=== PATIENT | male | born 1980 | race Caucasian/White ===

== ENCOUNTER 2017-03-24 11:52 | Inpatient (IN) | payer OTHER ==
[2017-03-24 12:31] VITALS: BMI 24.7
--- NOTE | 2017-03-24 17:05 | HP ---
Admission ROS [facility] - [facility] Chief Complaint: I need rehab to stop using so I can continue on OTP Allergies/Adverse Reactions: Allergies Allergy/AdvReac Type Severity Reaction Status Date / Time No Known Allergies Allergy Verified 03/24/17 16:14 History of Present Illness: 36 y/o man with a long hx. of drug & alcohol dependence is admitted to rehab. Pt completed detox at [facility], was sent to [place] for rehab but they did not want to keep him because of heart surgery. Exam Limitations: No Limitations - Ebola screening Have you traveled outside of the country in the last 21 days: No Have you had contact with anyone from an Ebola affected area: No Have you been sick,other than usual withdrawal symptoms: No - Review of Systems Constitutional: Diaphoresis EENT: reports: No Symptoms Reported Respiratory: reports: No Symptoms reported Cardiac: reports: No Symptoms Reported GI: reports: No Symptoms Reported : reports: No Symptoms Reported Musculoskeletal: reports: No Symptoms Reported Integumentary: reports: No Symptoms Reported Neuro: reports: No Symptoms reported Endocrine: reports: No Symptoms Reported Hematology: reports: No Symptoms Reported Psychiatric: reports: No Sypmtoms Reported Other Systems: Reviewed and Negative Patient History - Patient Medical History Hx Anemia: No Hx Asthma: No Hx Chronic Obstructive Pulmonary Disease (COPD): No Hx Cancer: No Hx Cardiac Disorders: Yes (tricuspid valve replacement) Hx Congestive Heart Failure: No Hx Hypertension: Yes Hx Hypercholesterolemia: No Hx Pacemaker: No HX Cerebrovascular Accident: No Hx Seizures: No Hx Dementia: No Hx Diabetes: No Hx Liver Disease: Yes Hx Genitourinary Disorders: No Hx Sexually Transmitted Disorders: No Hx Renal Disease (ESRD): No Hx Thyroid Disease: No Hx Human Immunodeficiency Virus (HIV): No Hx Hepatitis C: Yes Hx Depression: Yes (PTSD) Hx Suicide Attempt: Yes (Tried to hang himself) Hx Bipolar Disorder: Yes Hx Schizophrenia: No - Patient Surgical History Past Surgical History: Yes Hx Cardiac Surgery: Yes (Tricuspid valve replacement in 2012) - PPD History Previous Implant?: Yes Documented Results: Negative w/o proof Implanted On Prior [facility] Admission?: No PPD to be Administered?: Yes - Smoking Cessation Smoking history: Current every day smoker Have you smoked in the past 12 months: Yes Aproximately how many cigarettes per day: 5 Hx Chewing Tobacco Use: No Initiated information on smoking cessation: Yes 'Breaking Loose' booklet given: 03/24/17 - Substance & Tx. History Hx Alcohol Use: Yes Hx Substance Use: Yes Substance Use Type: Alcohol, Cocaine, Heroin Hx Substance Use Treatment: Yes (OTP([facility]),Detox at [facility] 03/17-03/22/17) - Substances Abused Alcohol Route: Oral Frequency: Daily Amount used: 2 pints vodka Age of first use: 15 Date of Last Use: 03/17/17 Cocaine Route: Injection Frequency: Daily Amount used: 4 bags Age of first use: 18 Date of Last Use: 03/23/17 Heroin Route: Injection Frequency: Daily Amount used: 10 bags Age of first use: 18 Date of Last Use: 03/24/17 Alprazolam (Xanax) Route: Oral Frequency: 3-6 times per week Amount used: 4-6mg Age of first use: 13 Date of Last Use: 03/17/17 Family Disease History - Family Disease History Family Disease History: Diabetes: Grandparent, Father (Heroin), Heart Disease: Grandparent, Other: Father, Mother (Heroin & Cocaine), Brother (Heroin) Admission Physical Exam [facility] - Vital Signs Vital Signs: Vital Signs - 24 hr 03/24/17 12:28 Temperature 95.9 F L Pulse Rate 84 Respiratory 18 Rate Blood Pressure 125/84 - Physical General Appearance: Yes: Within Normal Limits HEENTM: Yes: Within Normal Limits Respiratory: Yes: Chest Non-Tender, Lungs Clear, Normal Breath Sounds Neck: Yes: Supple Breast: Yes: Breast Exam Deferred Cardiology: Yes: Regular Rhythm, Regular Rate, S1, S2, Systolic Murmur (2/6) Abdominal: Yes: Normal Bowel Sounds, Non Tender, Soft Genitourinary: Yes: Within Normal Limits Back: Yes: Within Normal Limits Musculoskeletal: Yes: Within Normal Limits Extremities: Yes: Within Normal Limits Neurological: Yes: Fully Oriented, Alert Integumentary: Yes: Within Normal Limits Lymphatic: Yes: Within Normal Limits - Diagnostic (1) Cocaine dependence, uncomplicated Current Visit: Yes Status: Acute (2) History of bacterial endocarditis Current Visit: Yes Status: Acute (3) Opioid dependence on agonist therapy Current Visit: Yes Status: Acute (4) Sedative, hypnotic or anxiolytic dependence, uncomplicated Current Visit: Yes Status: Acute (5) Tricuspid valve replaced Current Visit: Yes Status: Acute (6) Uncomplicated alcohol dependence Current Visit: Yes Status: Acute Cleared for Admission [facility] - Detox or Rehab Detox Regimen/Protocol: Not Applicable Claeared for Rehab Admission: Yes [facility] Breath Alcohol Content Breath Alcohol Content: 0 Urine Drug Screen - Results Drug Screen Negative: No Urine Drug Screen Results: CRYSTAL-Cocaine, OPI-Opiates, BZO-Benzodiazepines, MTD- Methadone
[2017-03-24] MEDS ORDERED: MAGNESIUM HYDROX 2400MG/30ML ORAL SUSPENSION 30 ML CUP PO PRN (17:22)
[2017-03-24] MEDS ORDERED: IBUPROFEN 400 MG TABLET (FP) PO PRN (17:22)
[2017-03-24] MEDS ORDERED: MAG HYDROX/AL HYDROX/SIMETH 30 ML UNIT-DOSE CUP PO PRN (17:22)
[2017-03-24] MEDS ORDERED: MAGNESIUM CITRATE 300 ML BOTTLE PO PRN (17:22)
[2017-03-24] MEDS ORDERED: guaiFENesin/D-METHORPHAN HB 10 ML UNIT-DOSE CUPS PO PRN (17:22)
[2017-03-24] MEDS ORDERED: MENTHOL/PHENOL 1 EACH UD MM PRN (17:22)
[2017-03-24] MEDS ORDERED: NICOTINE POLACRILEX 2 MG GUM BC PRN (17:22)
[2017-03-24] MEDS ORDERED: LOPERAMIDE HCL 2 MG CAPSULE PO PRN (17:22)
[2017-03-24] MEDS ORDERED: P-EPHED 60MG/TRIPROLIDI 2.5MG TABLET PO PRN (17:22)
[2017-03-24] MEDS: NICOTINE 14 MG/24 HOURS TOPICAL PATCH TD SCH (18:19)
[2017-03-24] MEDS: METHADONE HCL 10 MG TABLET PO SCH (18:19)
[2017-03-24 21:09] LABS: URINE APPEARANCE CLEAR; URINE BILIRUBIN NEGATIVE (NEGATIVE); URINE BLOOD NEGATIVE (NEGATIVE); URINE COLOR YELLOW; URINE GLUCOSE (UA) NEGATIVE (NEGATIVE); URINE KETONE NEGATIVE (NEGATIVE); URINE LEUK ESTERASE NEGATIVE (NEGATIVE); URINE NITRITE NEGATIVE (NEGATIVE); URINE PROTEIN NEGATIVE (NEGATIVE); URINE UROBILINOGEN NEGATIVE E.U./dl (0.2-1.0)
[2017-03-24] MEDS: diphenhydrAMINE HCL 50 MG CAPSULE PO PRN (21:09)
[2017-03-24] MEDS: METOPROLOL TARTRATE 50 MG TABLET (FP) PO SCH (21:09)
[2017-03-24] MEDS: THIAMINE HCL 100 MG TABLET (FP) PO SCH (21:09)
[2017-03-25] MEDS: METHADONE HCL 10 MG TABLET PO SCH (06:21)
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
[2017-03-25] MEDS: NICOTINE 14 MG/24 HOURS TOPICAL PATCH TD SCH (10:08)
[2017-03-25] MEDS: METOPROLOL TARTRATE 50 MG TABLET (FP) PO SCH ×2 (10:08→21:12)
[2017-03-25] MEDS: ASPIRIN COATED 81 MG TABLET.EC PO SCH (10:08)
[2017-03-25] MEDS: PRENATAL VITAMINS W/ FOLIC ACID TABLET (FP) PO SCH (10:08)
[2017-03-25] MEDS: ACETAMINOPHEN 325 MG TABLET (FP) PO PRN (10:09)
--- NOTE | 2017-03-25 10:36 | EKG ---
Test Reason : Blood Pressure : / mmHG Vent. Rate : 064 BPM Atrial Rate : 064 BPM P-R Int : 164 ms QRS Dur : 112 ms QT Int : 466 ms P-R-T Axes : 113 073 128 degrees QTc Int : 480 ms NORMAL SINUS RHYTHM INCOMPLETE RIGHT BUNDLE BRANCH BLOCK ANTERIOR INFARCT , AGE UNDETERMINED ABNORMAL ECG NO PREVIOUS ECGS AVAILABLE Confirmed by ALBAN BERNARDO MD ([id number]) on 03/25/2017 10:36:31 AM Referred By: Confirmed By:ALBAN BERNARDO MD
--- NOTE | 2017-03-25 12:19 | PN ---
[facility] Progress Note Note: patient has been coughing with yellowish mucous,lung clear no wheezing, bronchitis zithromax 500 mgs po now then 250 mgs po daily for 3 days close monitoring
[2017-03-25] MEDS ORDERED: AZITHROMYCIN 250 MG TABLET (FP) PO ONE (12:21)
[2017-03-25] MEDS: THIAMINE HCL 100 MG TABLET (FP) PO SCH (21:12)
[2017-03-25] MEDS: QUEtiapine FUMARATE 100 MG TABLET (FP) PO SCH (21:12)
[2017-03-25] MEDS: diphenhydrAMINE HCL 50 MG CAPSULE PO PRN (21:12)
[2017-03-26] MEDS: METHADONE HCL 10 MG TABLET PO SCH (06:25)
[2017-03-26 09:49] LABS: MCH 26.1 pg (25.7-33.7); MEAN CELL VOLUME 81.7 fl (80-96); MEAN PLT VOLUME 8.2 fl (7.5-11.1); PLATELET COUNT 167 K/MM3 (134-434); RDW 17.6 % (11.9-15.9); WHITE BLOOD COUNT 7.3 K/mm3 (4.0-10.0)
[2017-03-26] MEDS: ASPIRIN COATED 81 MG TABLET.EC PO SCH (09:50)
[2017-03-26] MEDS: METOPROLOL TARTRATE 50 MG TABLET (FP) PO SCH ×2 (09:50→21:06)
[2017-03-26] MEDS: AZITHROMYCIN 250 MG TABLET (FP) PO SCH (09:50)
[2017-03-26] MEDS: PRENATAL VITAMINS W/ FOLIC ACID TABLET (FP) PO SCH (09:50)
[2017-03-26] MEDS: NICOTINE 14 MG/24 HOURS TOPICAL PATCH TD SCH (09:51)
[2017-03-26 09:59] LABS: ALBUMIN 3.3 g/dl (3.4-5.0); ANION GAP 6 (8-16); CALCIUM 8.9 mg/dL (8.5-10.1); CO2 30 mmol/L (21-32); COCKROFT - GAULT 110; CREATININE 0.9 mg/dL (0.7-1.3); GLUCOSE,RANDOM 72 mg/dL (74-106); SGOT/AST 55 U/L (15-37); SGPT/ALT 53 U/L (12-78)
[2017-03-26 10:02] LABS: ALK PHOS 124 U/L (45-117); BILIRUBIN,TOTAL 0.4 mg/dL (0.2-1.0); TOT PROT 6.6 g/dl (6.4-8.2)
[2017-03-26 10:13] LABS: SICKLE CELL SCREEN NEGATIVE (NEGATIVE)
[2017-03-26 11:01] LABS: HIV 1 & 2 AB NEGATIVE; HIV 1 AGp24 NEGATIVE
[2017-03-26] MEDS: diphenhydrAMINE HCL 50 MG CAPSULE PO PRN (21:06)
[2017-03-26] MEDS: QUEtiapine FUMARATE 100 MG TABLET (FP) PO SCH (21:06)
[2017-03-26] MEDS: THIAMINE HCL 100 MG TABLET (FP) PO SCH (21:06)
[2017-03-27] MEDS: METHADONE HCL 10 MG TABLET PO SCH (06:37)
[2017-03-27] MEDS: AZITHROMYCIN 250 MG TABLET (FP) PO SCH (09:38)
[2017-03-27] MEDS: ASPIRIN COATED 81 MG TABLET.EC PO SCH (09:38)
[2017-03-27] MEDS: PRENATAL VITAMINS W/ FOLIC ACID TABLET (FP) PO SCH (09:38)
[2017-03-27] MEDS: METOPROLOL TARTRATE 50 MG TABLET (FP) PO SCH ×2 (09:39→21:10)
[2017-03-27] MEDS: NICOTINE 14 MG/24 HOURS TOPICAL PATCH TD SCH (09:39)
[2017-03-27] MEDS: diphenhydrAMINE HCL 50 MG CAPSULE PO PRN (21:10)
[2017-03-27] MEDS: QUEtiapine FUMARATE 100 MG TABLET (FP) PO SCH (21:10)
[2017-03-27] MEDS: THIAMINE HCL 100 MG TABLET (FP) PO SCH (21:10)
[2017-03-28] MEDS: METHADONE HCL 10 MG TABLET PO SCH (06:17)
[2017-03-28] MEDS: ASPIRIN COATED 81 MG TABLET.EC PO SCH (09:47)
[2017-03-28] MEDS: PRENATAL VITAMINS W/ FOLIC ACID TABLET (FP) PO SCH (09:47)
[2017-03-28] MEDS: AZITHROMYCIN 250 MG TABLET (FP) PO SCH (09:47)
[2017-03-28] MEDS: METOPROLOL TARTRATE 50 MG TABLET (FP) PO SCH ×2 (09:47→21:07)
[2017-03-28] MEDS: NICOTINE 14 MG/24 HOURS TOPICAL PATCH TD SCH (09:47)
[2017-03-28] MEDS: QUEtiapine FUMARATE 100 MG TABLET (FP) PO SCH (21:07)
[2017-03-28] MEDS: diphenhydrAMINE HCL 50 MG CAPSULE PO PRN (21:07)
[2017-03-28] MEDS: THIAMINE HCL 100 MG TABLET (FP) PO SCH (21:07)
[2017-03-29] MEDS: METHADONE HCL 10 MG TABLET PO SCH (06:18)
[2017-03-29] MEDS: NICOTINE 14 MG/24 HOURS TOPICAL PATCH TD SCH (09:59)
[2017-03-29] MEDS: PRENATAL VITAMINS W/ FOLIC ACID TABLET (FP) PO SCH (09:59)
[2017-03-29] MEDS: METOPROLOL TARTRATE 50 MG TABLET (FP) PO SCH ×2 (09:59→21:07)
[2017-03-29] MEDS: ASPIRIN COATED 81 MG TABLET.EC PO SCH (09:59)
[2017-03-29] MEDS: QUEtiapine FUMARATE 100 MG TABLET (FP) PO SCH (21:07)
[2017-03-29] MEDS: THIAMINE HCL 100 MG TABLET (FP) PO SCH (21:07)
[2017-03-29] MEDS: diphenhydrAMINE HCL 50 MG CAPSULE PO PRN (21:08)
[2017-03-30] MEDS: METHADONE HCL 10 MG TABLET PO SCH (06:05)
[2017-03-30] MEDS: METOPROLOL TARTRATE 50 MG TABLET (FP) PO SCH ×2 (09:55→21:08)
[2017-03-30] MEDS: ASPIRIN COATED 81 MG TABLET.EC PO SCH (09:55)
[2017-03-30] MEDS: PRENATAL VITAMINS W/ FOLIC ACID TABLET (FP) PO SCH (09:55)
[2017-03-30] MEDS: NICOTINE 14 MG/24 HOURS TOPICAL PATCH TD SCH (09:55)
[2017-03-30] MEDS: hydrOXYzine PAMOATE 50 MG CAPSULE (FP) PO PRN ×2 (09:56→21:10)
[2017-03-30] MEDS: THIAMINE HCL 100 MG TABLET (FP) PO SCH (21:08)
[2017-03-30] MEDS: QUEtiapine FUMARATE 100 MG TABLET (FP) PO SCH (21:08)
[2017-03-31] MEDS: METHADONE HCL 10 MG TABLET PO SCH (06:13)
[2017-03-31] MEDS: METOPROLOL TARTRATE 50 MG TABLET (FP) PO SCH ×2 (09:45→21:13)
[2017-03-31] MEDS: PRENATAL VITAMINS W/ FOLIC ACID TABLET (FP) PO SCH (09:58)
[2017-03-31] MEDS: ASPIRIN COATED 81 MG TABLET.EC PO SCH (09:58)
[2017-03-31] MEDS: NICOTINE 14 MG/24 HOURS TOPICAL PATCH TD SCH (09:58)
[2017-03-31] MEDS: QUEtiapine FUMARATE 100 MG TABLET (FP) PO SCH (21:13)
[2017-03-31] MEDS: diphenhydrAMINE HCL 50 MG CAPSULE PO PRN (21:13)
[2017-03-31] MEDS: THIAMINE HCL 100 MG TABLET (FP) PO SCH (21:13)
[2017-04-01] MEDS: METHADONE HCL 10 MG TABLET PO SCH (06:07)
[2017-04-01] MEDS: NICOTINE 14 MG/24 HOURS TOPICAL PATCH TD SCH (10:05)
[2017-04-01] MEDS: PRENATAL VITAMINS W/ FOLIC ACID TABLET (FP) PO SCH (10:05)
[2017-04-01] MEDS: METOPROLOL TARTRATE 50 MG TABLET (FP) PO SCH ×2 (10:05→21:14)
[2017-04-01] MEDS: ASPIRIN COATED 81 MG TABLET.EC PO SCH (10:05)
[2017-04-01] MEDS: hydrOXYzine PAMOATE 50 MG CAPSULE (FP) PO PRN (10:06)
[2017-04-01] MEDS ORDERED: diphenhydrAMINE HCL 25 MG CAPSULE (FP) PO PRN (13:05)
--- NOTE | 2017-04-01 13:05 | PN ---
[facility] Progress Note Note: RASH TO BACK,BODY,CONTACT DERMATITIS,BENADRYL 25 MGS PO Q6 HRS FOR ITCHING, LIDEX CREAM,AVEENO SOAP
[2017-04-01] MEDS ORDERED: COLLOIDAL OATMEAL 1 BAR EACH TP PRN (13:06)
[2017-04-01] MEDS: FLUOCINONIDE 0.05% CREAM (60 GM TUBE) TP SCH ×2 (14:45→21:14)
[2017-04-01] MEDS: THIAMINE HCL 100 MG TABLET (FP) PO SCH (21:14)
[2017-04-01] MEDS: QUEtiapine FUMARATE 100 MG TABLET (FP) PO SCH (21:14)
[2017-04-01] MEDS: diphenhydrAMINE HCL 50 MG CAPSULE PO PRN (21:14)
[2017-04-02] MEDS: METHADONE HCL 10 MG TABLET PO SCH (06:15)
[2017-04-02] MEDS: FLUOCINONIDE 0.05% CREAM (60 GM TUBE) TP SCH ×2 (09:42→21:20)
[2017-04-02] MEDS: ASPIRIN COATED 81 MG TABLET.EC PO SCH (09:42)
[2017-04-02] MEDS: PRENATAL VITAMINS W/ FOLIC ACID TABLET (FP) PO SCH (09:42)
[2017-04-02] MEDS: METOPROLOL TARTRATE 50 MG TABLET (FP) PO SCH ×2 (09:42→21:19)
[2017-04-02] MEDS: NICOTINE 14 MG/24 HOURS TOPICAL PATCH TD SCH (09:43)
[2017-04-02] MEDS: QUEtiapine FUMARATE 100 MG TABLET (FP) PO SCH (21:19)
[2017-04-02] MEDS: THIAMINE HCL 100 MG TABLET (FP) PO SCH (21:19)
[2017-04-02] MEDS: diphenhydrAMINE HCL 50 MG CAPSULE PO PRN (21:20)
[2017-04-03] MEDS: METHADONE HCL 10 MG TABLET PO SCH (06:21)
[2017-04-03] MEDS: ASPIRIN COATED 81 MG TABLET.EC PO SCH (09:27)
[2017-04-03] MEDS: PRENATAL VITAMINS W/ FOLIC ACID TABLET (FP) PO SCH (09:27)
[2017-04-03] MEDS: FLUOCINONIDE 0.05% CREAM (60 GM TUBE) TP SCH ×2 (09:28→21:16)
[2017-04-03] MEDS: NICOTINE 14 MG/24 HOURS TOPICAL PATCH TD SCH (09:28)
[2017-04-03] MEDS: METOPROLOL TARTRATE 50 MG TABLET (FP) PO SCH ×2 (10:59→21:15)
[2017-04-03] MEDS: QUEtiapine FUMARATE 100 MG TABLET (FP) PO SCH (21:15)
[2017-04-03] MEDS: THIAMINE HCL 100 MG TABLET (FP) PO SCH (21:15)
[2017-04-03] MEDS: diphenhydrAMINE HCL 50 MG CAPSULE PO PRN (21:15)
[2017-04-04] MEDS: METHADONE HCL 10 MG TABLET PO SCH (06:15)
[2017-04-04] MEDS: hydrOXYzine PAMOATE 50 MG CAPSULE (FP) PO PRN (09:59)
[2017-04-04] MEDS: PRENATAL VITAMINS W/ FOLIC ACID TABLET (FP) PO SCH (09:59)
[2017-04-04] MEDS: FLUOCINONIDE 0.05% CREAM (60 GM TUBE) TP SCH ×2 (09:59→21:31)
[2017-04-04] MEDS: ASPIRIN COATED 81 MG TABLET.EC PO SCH (09:59)
[2017-04-04] MEDS: METOPROLOL TARTRATE 50 MG TABLET (FP) PO SCH ×2 (09:59→21:30)
[2017-04-04] MEDS: ACETAMINOPHEN 325 MG TABLET (FP) PO PRN (10:00)
[2017-04-04] MEDS: NICOTINE 14 MG/24 HOURS TOPICAL PATCH TD SCH (10:02)
[2017-04-04] MEDS: QUEtiapine FUMARATE 100 MG TABLET (FP) PO SCH (21:30)
[2017-04-04] MEDS: diphenhydrAMINE HCL 50 MG CAPSULE PO PRN (21:30)
[2017-04-04] MEDS: THIAMINE HCL 100 MG TABLET (FP) PO SCH (21:30)
[2017-04-05] MEDS: METHADONE HCL 10 MG TABLET PO SCH (06:03)
[2017-04-05] MEDS ORDERED: ONDANSETRON *ODT* 4 MG TABLET SL PRN (08:05)
[2017-04-05] MEDS: ASPIRIN COATED 81 MG TABLET.EC PO SCH (10:01)
[2017-04-05] MEDS: METOPROLOL TARTRATE 50 MG TABLET (FP) PO SCH ×2 (10:01→21:06)
[2017-04-05] MEDS: NICOTINE 14 MG/24 HOURS TOPICAL PATCH TD SCH (10:01)
[2017-04-05] MEDS: PRENATAL VITAMINS W/ FOLIC ACID TABLET (FP) PO SCH (10:02)
[2017-04-05] MEDS: FLUOCINONIDE 0.05% CREAM (60 GM TUBE) TP SCH ×2 (10:02→21:06)
--- NOTE | 2017-04-05 15:28 | PN ---
Psychiatric Progress Note Vital Signs: Vital Signs Period Temp Pulse Resp BP Sys/Beckford Pulse Ox Last 24 Hr 97.6 F 56-76 16-16 99-121/66-83 Date of Session: 04/05/17 Chief Complaint:: progress update HPI: Patient is addressing sedative hypnotic, opioid, cocaie dependence comorbid PTSD, Bipolar disorder. ROS: WNL Current Medications: Active Medications Generic Name Dose Route Start Last Admin Trade Name Freq PRN Reason Stop Dose Admin Acetaminophen 650 mg 03/24/17 17:22 04/04/17 10:00 Tylenol - PO 650 mg Q4H PRN Administration PAIN Al Hydroxide/Mg Hydroxide 30 ml 03/24/17 17:22 Mylanta Oral Suspension - PO Q6H PRN DYSPEPSIA Aspirin 81 mg 03/25/17 10:00 04/05/17 10:01 Ecotrin - PO 81 mg DAILY TOMMY Administration Colloidal Oatmeal 1 applic 04/01/17 13:06 04/01/17 14:47 Aveeno Soap - TP 1 applic DAILY PRN Administration HYGEINE Diphenhydramine HCl 50 mg 03/24/17 17:22 04/04/17 21:30 Benadryl - PO 50 mg HSMR1 PRN Administration INSOMNIA Diphenhydramine HCl 25 mg 04/01/17 13:05 Benadryl - PO Q6H PRN FOR ITCHING Eucalyptus/Menthol/Phenol/Sorbitol 1 each 03/24/17 17:22 Cepastat Lozenge - MM Q4H PRN SORE THROAT Fluocinonide 1 applic 04/01/17 13:15 04/05/17 10:02 Lidex 0.05% Cream - TP Not Given BID TOMMY Guaifenesin 10 ml 03/24/17 17:22 Robitussin Dm - PO Q6H PRN COUGH Hydroxyzine Pamoate 50 mg 03/25/17 14:41 04/04/17 09:59 Vistaril - PO 50 mg Q4H PRN Administration ANXIETY Ibuprofen 400 mg 03/24/17 17:22 Motrin - PO Q6H PRN SEVERE PAIN Loperamide HCl 4 mg 03/24/17 17:22 04/05/17 10:01 Imodium - PO 4 mg Q6H PRN Administration DIARRHEA Magnesium Citrate 300 ml 03/24/17 17:22 03/31/17 14:54 Citroma - PO 300 ml Q48H PRN Administration CONSTIPATION Magnesium Hydroxide 30 ml 03/24/17 17:22 03/31/17 10:08 Milk Of Magnesia - PO 30 ml DAILY PRN Administration CONSTIPATION Methadone HCl 30 mg 04/01/17 06:00 04/05/17 06:03 Dolophine - PO 04/07/17 05:59 30 mg DAILY@0600 TOMMY Administration Metoprolol Tartrate 50 mg 03/24/17 22:00 04/05/17 10:01 Lopressor - PO 50 mg BID TOMMY Administration Nicotine 14 mg 03/24/17 18:00 04/05/17 10:01 Nicoderm Patch - TD 14 mg DAILY TOMMY Administration Nicotine Polacrilex 2 mg 03/24/17 17:22 Nicorette Gum - BC Q2H PRN NICOTINE REPLACEMENT RX Ondansetron HCl 4 mg 04/05/17 08:05 04/05/17 08:37 Zofran Odt - SL 4 mg Q6H PRN Administration NAUSEA AND/OR VOMITING Multivit/Folic Acid/Iron 1 tab 03/25/17 10:00 04/05/17 10:02 Vitamins ([facility]) - PO 1 tab DAILY TOMMY Administration Pseudoephedrine/Triprolidine 1 combo 03/24/17 17:22 Actifed - PO TID PRN NASAL CONGESTION Quetiapine Fumarate 200 mg 04/05/17 15:17 Seroquel - PO HS TOMMY Sertraline HCl 50 mg 04/05/17 15:17 Zoloft - PO 04/05/17 15:18 ONCE ONE Thiamine HCl 100 mg 03/24/17 22:00 04/04/17 21:30 Vitamin B1 - PO 100 mg HS TOMMY Administration Current Side Effect: No Lab tests ordered: No Lab tests reviewed: Yes Provider note:: Was asked to evaluate the patient by medical staff, as hpatient was observed looking sad, met with the patient who reports that he has "bad dey and good dayys", yesterday was feeling sad and depressed, reports was father's day he thought about his father as well thoughst about himself being far from his children. He reports poor interrupted sleep, having racing thoughst at nights. Reiewed medications with the patient, will add Zoloft 50 mg daily, will increase Seroquel 200 mg po hs. Supportive therapy provided, will continue to monitor progress. Total face to face time:: 35 Mental Status Exam - Mental Status Exam Alert and Oriented to: Time, Place, Person Cognitive Function: Grossly Intact Patient Appearance: Well Groomed Mood: Depressed, Sad Affect: Appropriate, Mood Congruent Patient Behavior: Appropriate, Cooperative Speech Pattern: Clear, Appropriate Voice Loudness: Normal Thought Process: Intact, Goal Oriented Thought Disorder: Not Present Hallucinations: Denies Suicidal Ideation: Denies Homicidal Ideation: Denies Insight/Judgement: Fair Sleep: Poorly, Difficulty falling asleep Appetite: Poor Muscle strength/Tone: Normal Gait/Station: Normal Psychiatric Treatment Plan - Problem List (1) Cocaine dependence, uncomplicated Current Visit: Yes (2) History of bacterial endocarditis Current Visit: Yes (3) Opioid dependence on agonist therapy Current Visit: Yes (4) Sedative, hypnotic or anxiolytic dependence, uncomplicated Current Visit: Yes (5) PTSD (post-traumatic stress disorder) Current Visit: Yes (6) Bipolar 1 disorder Current Visit: Yes
[2017-04-05] MEDS ORDERED: SERTRALINE HCL 50 MG TABLET (FP) PO ONE (15:29)
[2017-04-05] MEDS: THIAMINE HCL 100 MG TABLET (FP) PO SCH (21:06)
[2017-04-05] MEDS: diphenhydrAMINE HCL 50 MG CAPSULE PO PRN (21:07)
[2017-04-05] MEDS: QUEtiapine FUMARATE 200 MG TABLET PO SCH (21:07)
[2017-04-06] MEDS: METHADONE HCL 10 MG TABLET PO SCH (06:54)
[2017-04-06] MEDS: ASPIRIN COATED 81 MG TABLET.EC PO SCH (09:54)
[2017-04-06] MEDS: PRENATAL VITAMINS W/ FOLIC ACID TABLET (FP) PO SCH (09:54)
[2017-04-06] MEDS: NICOTINE 14 MG/24 HOURS TOPICAL PATCH TD SCH (09:55)
[2017-04-06] MEDS: FLUOCINONIDE 0.05% CREAM (60 GM TUBE) TP SCH ×2 (09:55→21:16)
[2017-04-06] MEDS: METOPROLOL TARTRATE 50 MG TABLET (FP) PO SCH ×2 (10:59→21:16)
[2017-04-06] MEDS: THIAMINE HCL 100 MG TABLET (FP) PO SCH (21:16)
[2017-04-06] MEDS: diphenhydrAMINE HCL 50 MG CAPSULE PO PRN (21:16)
[2017-04-06] MEDS: QUEtiapine FUMARATE 200 MG TABLET PO SCH (21:16)
[2017-04-07] MEDS: METHADONE HCL 10 MG TABLET PO SCH (06:07)
[2017-04-07] MEDS: NICOTINE 14 MG/24 HOURS TOPICAL PATCH TD SCH (09:47)
[2017-04-07] MEDS: PRENATAL VITAMINS W/ FOLIC ACID TABLET (FP) PO SCH (09:47)
[2017-04-07] MEDS: FLUOCINONIDE 0.05% CREAM (60 GM TUBE) TP SCH ×2 (09:47→21:07)
[2017-04-07] MEDS: ASPIRIN COATED 81 MG TABLET.EC PO SCH (09:47)
[2017-04-07] MEDS: METOPROLOL TARTRATE 50 MG TABLET (FP) PO SCH ×2 (10:55→21:07)
[2017-04-07] MEDS: THIAMINE HCL 100 MG TABLET (FP) PO SCH (21:07)
[2017-04-07] MEDS: QUEtiapine FUMARATE 200 MG TABLET PO SCH (21:07)
[2017-04-07] MEDS: diphenhydrAMINE HCL 50 MG CAPSULE PO PRN (21:08)
[2017-04-08] MEDS: METHADONE HCL 10 MG TABLET PO SCH (06:31)
[2017-04-08] MEDS: ASPIRIN COATED 81 MG TABLET.EC PO SCH (09:51)
[2017-04-08] MEDS: METOPROLOL TARTRATE 50 MG TABLET (FP) PO SCH ×2 (09:51→21:04)
[2017-04-08] MEDS: PRENATAL VITAMINS W/ FOLIC ACID TABLET (FP) PO SCH (09:51)
[2017-04-08] MEDS: NICOTINE 14 MG/24 HOURS TOPICAL PATCH TD SCH (09:51)
[2017-04-08] MEDS: FLUOCINONIDE 0.05% CREAM (60 GM TUBE) TP SCH ×2 (09:52→21:06)
[2017-04-08] MEDS: diphenhydrAMINE HCL 50 MG CAPSULE PO PRN (21:04)
[2017-04-08] MEDS: THIAMINE HCL 100 MG TABLET (FP) PO SCH (21:04)
[2017-04-08] MEDS: QUEtiapine FUMARATE 200 MG TABLET PO SCH (21:04)
[2017-04-09] MEDS: METHADONE HCL 10 MG TABLET PO SCH (06:32)
[2017-04-09] MEDS: NICOTINE 14 MG/24 HOURS TOPICAL PATCH TD SCH (09:42)
[2017-04-09] MEDS: FLUOCINONIDE 0.05% CREAM (60 GM TUBE) TP SCH ×2 (09:42→21:16)
[2017-04-09] MEDS: ASPIRIN COATED 81 MG TABLET.EC PO SCH (09:42)
[2017-04-09] MEDS: METOPROLOL TARTRATE 50 MG TABLET (FP) PO SCH ×2 (09:42→21:16)
[2017-04-09] MEDS: PRENATAL VITAMINS W/ FOLIC ACID TABLET (FP) PO SCH (09:42)
[2017-04-09] MEDS: THIAMINE HCL 100 MG TABLET (FP) PO SCH (21:16)
[2017-04-09] MEDS: QUEtiapine FUMARATE 200 MG TABLET PO SCH (21:16)
[2017-04-09] MEDS: diphenhydrAMINE HCL 50 MG CAPSULE PO PRN (21:17)
[2017-04-10] MEDS: METHADONE HCL 10 MG TABLET PO SCH (06:17)
[2017-04-10] MEDS: FLUOCINONIDE 0.05% CREAM (60 GM TUBE) TP SCH ×2 (09:36→23:11)
[2017-04-10] MEDS: PRENATAL VITAMINS W/ FOLIC ACID TABLET (FP) PO SCH (09:36)
[2017-04-10] MEDS: METOPROLOL TARTRATE 50 MG TABLET (FP) PO SCH ×2 (09:36→21:29)
[2017-04-10] MEDS: NICOTINE 14 MG/24 HOURS TOPICAL PATCH TD SCH (09:36)
[2017-04-10] MEDS: ASPIRIN COATED 81 MG TABLET.EC PO SCH (09:36)
[2017-04-10] MEDS: THIAMINE HCL 100 MG TABLET (FP) PO SCH (21:29)
[2017-04-10] MEDS: QUEtiapine FUMARATE 200 MG TABLET PO SCH (21:29)
[2017-04-10] MEDS: diphenhydrAMINE HCL 50 MG CAPSULE PO PRN (21:30)
[2017-04-11] MEDS: METHADONE HCL 10 MG TABLET PO SCH (06:16)
[2017-04-11] MEDS: ASPIRIN COATED 81 MG TABLET.EC PO SCH (09:53)
[2017-04-11] MEDS: PRENATAL VITAMINS W/ FOLIC ACID TABLET (FP) PO SCH (09:53)
[2017-04-11] MEDS: FLUOCINONIDE 0.05% CREAM (60 GM TUBE) TP SCH ×2 (09:54→21:10)
[2017-04-11] MEDS: NICOTINE 14 MG/24 HOURS TOPICAL PATCH TD SCH (09:54)
[2017-04-11] MEDS: METOPROLOL TARTRATE 50 MG TABLET (FP) PO SCH ×2 (09:56→21:10)
[2017-04-11] MEDS: diphenhydrAMINE HCL 50 MG CAPSULE PO PRN (21:10)
[2017-04-11] MEDS: QUEtiapine FUMARATE 200 MG TABLET PO SCH (21:10)
[2017-04-11] MEDS: THIAMINE HCL 100 MG TABLET (FP) PO SCH (21:10)
[2017-04-12] MEDS: METHADONE HCL 10 MG TABLET PO SCH (06:04)
[2017-04-12] MEDS: METOPROLOL TARTRATE 50 MG TABLET (FP) PO SCH ×2 (10:04→21:17)
[2017-04-12] MEDS: PRENATAL VITAMINS W/ FOLIC ACID TABLET (FP) PO SCH (10:04)
[2017-04-12] MEDS: NICOTINE 14 MG/24 HOURS TOPICAL PATCH TD SCH (10:05)
[2017-04-12] MEDS: ASPIRIN COATED 81 MG TABLET.EC PO SCH (10:05)
[2017-04-12] MEDS: FLUOCINONIDE 0.05% CREAM (60 GM TUBE) TP SCH ×2 (10:05→21:18)
[2017-04-12] MEDS: THIAMINE HCL 100 MG TABLET (FP) PO SCH (21:17)
[2017-04-12] MEDS: QUEtiapine FUMARATE 200 MG TABLET PO SCH (21:17)
[2017-04-12] MEDS: diphenhydrAMINE HCL 50 MG CAPSULE PO PRN (21:17)
[2017-04-13] MEDS: METHADONE HCL 10 MG TABLET PO SCH (06:29)
[2017-04-13 06:45] VITALS: BP 109/68; PULSE 71; TEMP 97.4
[2017-04-13] MEDS: NICOTINE 14 MG/24 HOURS TOPICAL PATCH TD SCH (09:57)
[2017-04-13] MEDS: METOPROLOL TARTRATE 50 MG TABLET (FP) PO SCH (09:57)
[2017-04-13] MEDS: ASPIRIN COATED 81 MG TABLET.EC PO SCH (09:57)
[2017-04-13] MEDS: PRENATAL VITAMINS W/ FOLIC ACID TABLET (FP) PO SCH (09:57)
[2017-04-13] MEDS: FLUOCINONIDE 0.05% CREAM (60 GM TUBE) TP SCH (09:57)
--- NOTE | 2017-04-13 10:43 | PN ---
Psychiatric Progress Note Vital Signs: Vital Signs Period Temp Pulse Resp BP Sys/Beckford Pulse Ox Last 24 Hr 97.4 F 69-71 16-16 109-127/68-79 Date of Session: 04/13/17 Chief Complaint:: discharge visit HPI: Patient is addressing sedative hypnotic, opioid, cocaie dependence comorbid PTSD, Bipolar disorder. ROS: WNL Current Medications: Active Medications Generic Name Dose Route Start Last Admin Trade Name Freq PRN Reason Stop Dose Admin Acetaminophen 650 mg 03/24/17 17:22 04/04/17 10:00 Tylenol - PO 650 mg Q4H PRN Administration PAIN Al Hydroxide/Mg Hydroxide 30 ml 03/24/17 17:22 Mylanta Oral Suspension - PO Q6H PRN DYSPEPSIA Aspirin 81 mg 03/25/17 10:00 04/13/17 09:57 Ecotrin - PO 81 mg DAILY TOMMY Administration Colloidal Oatmeal 1 applic 04/01/17 13:06 04/01/17 14:47 Aveeno Soap - TP 1 applic DAILY PRN Administration HYGEINE Diphenhydramine HCl 50 mg 03/24/17 17:22 04/12/17 21:17 Benadryl - PO 50 mg HSMR1 PRN Administration INSOMNIA Diphenhydramine HCl 25 mg 04/01/17 13:05 Benadryl - PO Q6H PRN FOR ITCHING Eucalyptus/Menthol/Phenol/Sorbitol 1 each 03/24/17 17:22 Cepastat Lozenge - MM Q4H PRN SORE THROAT Fluocinonide 1 applic 04/01/17 13:15 04/13/17 09:57 Lidex 0.05% Cream - TP 1 applic BID TOMMY Administration Guaifenesin 10 ml 03/24/17 17:22 Robitussin Dm - PO Q6H PRN COUGH Hydroxyzine Pamoate 50 mg 03/25/17 14:41 04/04/17 09:59 Vistaril - PO 50 mg Q4H PRN Administration ANXIETY Ibuprofen 400 mg 03/24/17 17:22 Motrin - PO Q6H PRN SEVERE PAIN Loperamide HCl 4 mg 03/24/17 17:22 04/05/17 10:01 Imodium - PO 4 mg Q6H PRN Administration DIARRHEA Magnesium Citrate 300 ml 03/24/17 17:22 03/31/17 14:54 Citroma - PO 300 ml Q48H PRN Administration CONSTIPATION Magnesium Hydroxide 30 ml 03/24/17 17:22 03/31/17 10:08 Milk Of Magnesia - PO 30 ml DAILY PRN Administration CONSTIPATION Methadone HCl 30 mg 04/07/17 06:00 04/13/17 06:29 Dolophine - PO 30 mg DAILY@0600 TOMMY Administration Metoprolol Tartrate 50 mg 03/24/17 22:00 04/13/17 09:57 Lopressor - PO 50 mg BID TOMMY Administration Nicotine 14 mg 03/24/17 18:00 04/13/17 09:57 Nicoderm Patch - TD 14 mg DAILY TOMMY Administration Nicotine Polacrilex 2 mg 03/24/17 17:22 Nicorette Gum - BC Q2H PRN NICOTINE REPLACEMENT RX Ondansetron HCl 4 mg 04/05/17 08:05 04/05/17 08:37 Zofran Odt - SL 4 mg Q6H PRN Administration NAUSEA AND/OR VOMITING Multivit/Folic Acid/Iron 1 tab 03/25/17 10:00 04/13/17 09:57 Vitamins ([facility]) - PO 1 tab DAILY TOMMY Administration Pseudoephedrine/Triprolidine 1 combo 03/24/17 17:22 Actifed - PO TID PRN NASAL CONGESTION Quetiapine Fumarate 200 mg 04/05/17 22:00 04/12/17 21:17 Seroquel - PO 200 mg HS TOMMY Administration Thiamine HCl 100 mg 03/24/17 22:00 04/12/17 21:17 Vitamin B1 - PO 100 mg HS TOMMY Administration Current Side Effect: No Lab tests ordered: No Lab tests reviewed: Yes Provider note:: The patient has completed today his treatment and met his identified goals, will continue to address his issues at [facility] inpatient rehabilitation treatment program. Patient requested to leave earlier than scheduled date , states he needs to go to the social service, he will wait for a bed at [facility] and stay with his grandmother until a bed is available. Patient talked about his medical issues. Reports he would need another heart surgery. Patient verbalized his motivations to continue sobriety and to follow-up with his medical appointments. Medications well tolerated, scripts e-tranferred to his pharmacy, patient was encouraged to utilize all supports to prevent relapses , he is stable for discharge today. Total face to face time:: 35 Mental Status Exam - Mental Status Exam Alert and Oriented to: Time, Place, Person Cognitive Function: Good Patient Appearance: Well Groomed Mood: Hopeful Affect: Mood Congruent Patient Behavior: Appropriate, Cooperative Speech Pattern: Clear, Appropriate Voice Loudness: Normal Thought Process: Goal Oriented Thought Disorder: Not Present Hallucinations: Denies Suicidal Ideation: Denies Homicidal Ideation: Denies Insight/Judgement: Fair Sleep: Fair Appetite: Fair Muscle strength/Tone: Normal Gait/Station: Normal Psychiatric Treatment Plan - Problem List (1) Cocaine dependence, uncomplicated Current Visit: Yes (2) History of bacterial endocarditis Current Visit: Yes (3) Opioid dependence on agonist therapy Current Visit: Yes (4) Sedative, hypnotic or anxiolytic dependence, uncomplicated Current Visit: Yes (5) PTSD (post-traumatic stress disorder) Current Visit: Yes (6) Bipolar 1 disorder Current Visit: Yes
== END 2017-04-13 11:20 | disposition home or self-care (01) | DRG 772 ==
LOC: YASAS 11:52 → Y5N 16:49
PROVIDERS: ADMIT Psychiatry & Neurology Psychiatry; ATTEND Psychiatry & Neurology Psychiatry
PROC: HZ42ZZZ Group Counseling for Substance Abuse Treatment, Cognitive-Behavioral (ICD-10-PCS; principal; 2017-03-24)
DX: F11.20 Opioid dependence, uncomplicated (principal); F13.20 Sedative, hypnotic or anxiolytic dependence, uncomplicated; F14.20 Cocaine dependence, uncomplicated; F17.210 Nicotine dependence, cigarettes, uncomplicated; F43.10 Post-traumatic stress disorder, unspecified; F31.89 Other bipolar disorder; L25.9 Unspecified contact dermatitis, unspecified cause; J40 Bronchitis, not specified as acute or chronic; K76.9 Liver disease, unspecified; I10 Essential (primary) hypertension; R01.1 Cardiac murmur, unspecified; B18.2 Chronic viral hepatitis C; Z86.79 Personal history of other diseases of the circulatory system; Z95.2 Presence of prosthetic heart valve; Z91.5 Personal history of self-harm
CPT/HCPCS: 36415; 80053; 81003; 85027; 85660; 86593; 87389; 93005; 93010

== ENCOUNTER 2017-06-05 10:34 | Inpatient (IN) | payer OTHER ==
[2017-06-05 10:51] VITALS: BMI 24.2
--- NOTE | 2017-06-05 12:56 | HP ---
CIWA Score - CIWA Score Nausea/Vomitin-Mild Nausea/No Vomiting Muscle Tremors: 3 Anxiety: 4-Mod. Anxious/Guarded Agitation: 1-Slight > Activity Paroxysmal Sweats: 1-Minimal Palms Moist Orientation: 1-Uncertain about Date Tacttile Disturbances: 1-Very Mild Itch/Numbness Auditory Disturbances: 1-Very Mild Visual Disturbances: 1-Very Mild Sensitivity Headache: 2-Mild CIWA-Ar Total Score: 16 Admission ROS BHS - HPI Chief Complaint: I want to stop drinking, I want to get out of this kind of life Allergies/Adverse Reactions: Allergies Allergy/AdvReac Type Severity Reaction Status Date / Time No Known Allergies Allergy Verified 03/24/17 16:14 History of Present Illness: 36yo gentleman here for detox from alcohol - also using heroin/cocaine but on a methadone program([facility], [place], 30mg - brought in bottle for tomorrow and was dosed today.) No seizures no black outs. Exam Limitations: Clinical Condition - Ebola screening Have you traveled outside of the country in the last 21 days: No Have you had contact with anyone from an Ebola affected area: No Have you been sick,other than usual withdrawal symptoms: No Do you have a fever: No - Review of Systems Constitutional: Loss of Appetite, Malaise, Weakness EENT: reports: Blurred Vision Respiratory: reports: No Symptoms reported Cardiac: reports: No Symptoms Reported GI: reports: Poor Appetite : reports: Incontinence Musculoskeletal: reports: No Symptoms Reported Integumentary: reports: No Symptoms Reported Neuro: reports: Headache, Tremors Endocrine: reports: No Symptoms Reported Hematology: reports: No Symptoms Reported Psychiatric: reports: Mood/Affect Appropiate, Orientated x3, Anxious Other Systems: Reviewed and Negative Patient History - Patient Medical History Hx Anemia: No Hx Asthma: No Hx Chronic Obstructive Pulmonary Disease (COPD): No Hx Cancer: No Hx Cardiac Disorders: Yes (Tricuspid valve repair 10/2012) Hx Congestive Heart Failure: No Hx Hypertension: Yes (With treatment) Hx Hypercholesterolemia: No Hx Pacemaker: No HX Cerebrovascular Accident: No Hx Seizures: No Hx Dementia: No Hx Diabetes: No Hx Gastrointestinal Disorders: Yes (fecal incontinence ) Hx Liver Disease: Yes Hx Genitourinary Disorders: No Hx Sexually Transmitted Disorders: No Hx Renal Disease (ESRD): No Hx Thyroid Disease: No Hx Human Immunodeficiency Virus (HIV): No Hx Hepatitis C: Yes (no treated) Hx Depression: Yes (hospitalized last year) Hx Suicide Attempt: Yes (05/2016 by hanging himself) Hx Bipolar Disorder: Yes Hx Schizophrenia: No - Patient Surgical History Past Surgical History: Yes Hx Neurologic Surgery: No Hx Cataract Extraction: No Hx Cardiac Surgery: Yes (Tricuspid valve replacement in 2012) Hx Lung Surgery: No Hx Breast Surgery: No Hx Breast Biopsy: No Hx Abdominal Surgery: No Hx Appendectomy: No Hx Cholecystectomy: No Hx Genitourinary Surgery: No Hx Section: No Hx Orthopedic Surgery: No Anesthesia Reaction: No - PPD History Previous Implant?: Yes Documented Results: Negative w/o proof PPD to be Administered?: Yes - Reproductive History Patient is a Female of Child Bearing Age (11 -55 yrs old): No (male) - Smoking Cessation Smoking history: Current every day smoker Have you smoked in the past 12 months: Yes Aproximately how many cigarettes per day: 10 Hx Chewing Tobacco Use: No Initiated information on smoking cessation: Yes 'Breaking Loose' booklet given: 06/05/17 (give on floor) - Substance & Tx. History Hx Alcohol Use: Yes Hx Substance Use: Yes Substance Use Type: Alcohol, Cocaine Hx Substance Use Treatment: Yes - Substances Abused Alcohol Route: Oral Frequency: Daily Amount used: 2 pints Age of first use: 11 Date of Last Use: 06/04/17 Cocaine Route: Injection Frequency: Daily Amount used: 12 bundles Age of first use: 18 Date of Last Use: 06/04/17 Heroin Route: Injection Frequency: Daily Amount used: 10 bags Age of first use: 18 Date of Last Use: 06/04/17 Family Disease History - Family Disease History Family Disease History: Diabetes: Grandparent, Father (, Heroin), Heart Disease: Grandparent, Other: Father, Mother (, heroin, cocaine), Brother (living, Heroin), Sister (age 18, living, uses pot), Son (one age 20, living, healthy), Daughter (3 ages 13, 14, 15 - healthy) Admission Physical Exam BHS - Vital Signs Vital Signs: Vital Signs - 24 hr 06/05/17 10:49 Temperature 97.3 F L Pulse Rate 67 Respiratory 18 Rate Blood Pressure 138/94 - Physical General Appearance: Yes: Nourished, Appropriately Dressed, Mild Distress, Anxious HEENTM: Yes: Hearing grossly Normal, Normocephalic, Normal Voice Respiratory: Yes: Normal Breath Sounds, No Respiratory Distress Neck: Yes: No masses,lesions,Nodules, Supple Breast: Yes: Breast Exam Deferred Cardiology: Yes: Regular Rhythm, Regular Rate, Surgical Scar Abdominal: Yes: Soft Genitourinary: Yes: Frequency Back: Yes: Normal Inspection Musculoskeletal: Yes: full range of Motion, Gait Steady Extremities: Yes: Normal Inspection, Normal Range of Motion, Non-Tender Neurological: Yes: Alert, Normal Mood/Affect, Normal Response Integumentary: Yes: Normal Color, Warm, Track [place] Lymphatic: Yes: Within Normal Limits - Diagnostic (1) Cocaine dependence, uncomplicated Current Visit: Yes Status: Chronic (2) History of bacterial endocarditis Current Visit: Yes Status: Chronic (3) Tricuspid valve replaced Current Visit: Yes Status: Chronic (4) Uncomplicated alcohol dependence Current Visit: Yes Status: Chronic (5) Methadone maintenance therapy patient Current Visit: Yes Status: Chronic (6) Hepatitis C Current Visit: Yes Status: Chronic Qualifiers: Viral hepatitis chronicity: chronic Hepatic coma status: without hepatic coma Qualified Code(s): B18.2 - Chronic viral hepatitis C (7) Nicotine dependence Current Visit: Yes Status: Chronic Qualifiers: Nicotine product type: cigarettes Substance use status: uncomplicated Qualified Code(s): F17.210 - Nicotine dependence, cigarettes, uncomplicated Cleared for Admission S - Detox or Rehab [facility] Level of Care: Medically Managed Detox Regimen/Protocol: Librium [facility] Breath Alcohol Content Breath Alcohol Content: 0 Urine Drug Screen - Results Drug Screen Negative: No Urine Drug Screen Results: CRYSTAL-Cocaine, OPI-Opiates, BZO-Benzodiazepines, MTD- Methadone
[2017-06-05] MEDS ORDERED: LOPERAMIDE HCL 2 MG CAPSULE PO PRN (13:09)
[2017-06-05] MEDS ORDERED: MENTHOL/PHENOL 1 EACH UD MM PRN (13:09)
[2017-06-05] MEDS ORDERED: MAGNESIUM HYDROX 2400MG/30ML ORAL SUSPENSION 30 ML CUP PO PRN (13:09)
[2017-06-05] MEDS ORDERED: ACETAMINOPHEN 325 MG TABLET (FP) PO PRN (13:09)
[2017-06-05] MEDS ORDERED: MAG HYDROX/AL HYDROX/SIMETH 30 ML UNIT-DOSE CUP PO PRN (13:09)
[2017-06-05] MEDS ORDERED: MAGNESIUM CITRATE 300 ML BOTTLE PO PRN (13:09)
[2017-06-05] MEDS ORDERED: chlordiazePOXIDE HCL 25 MG CAPSULE PO PRN (13:09)
[2017-06-05] MEDS ORDERED: guaiFENesin/D-METHORPHAN HB 10 ML UNIT-DOSE CUPS PO PRN (13:09)
[2017-06-05] MEDS ORDERED: hydrOXYzine PAMOATE 50 MG CAPSULE (FP) PO PRN (13:09)
[2017-06-05] MEDS ORDERED: P-EPHED 60MG/TRIPROLIDI 2.5MG TABLET PO PRN (13:09)
[2017-06-05] MEDS ORDERED: chlordiazePOXIDE HCL 25 MG CAPSULE PO ONE (15:00)
[2017-06-05] MEDS: ASPIRIN 81 MG CHEWABLE TABLETS PO SCH (15:51)
[2017-06-05] MEDS: NICOTINE 21 MG/24 HOURS TOPICAL PATCH TD SCH (15:51)
[2017-06-05] MEDS: METOPROLOL TARTRATE 50 MG TABLET (FP) PO SCH (15:51)
[2017-06-05] MEDS: chlordiazePOXIDE HCL 25 MG CAPSULE PO SCH ×2 (18:10→22:10)
[2017-06-05] MEDS: THIAMINE HCL 100 MG TABLET (FP) PO SCH (22:10)
[2017-06-05] MEDS: diphenhydrAMINE HCL 50 MG CAPSULE PO PRN (22:10)
[2017-06-05 23:18] LABS: URINE APPEARANCE CLEAR; URINE BILIRUBIN NEGATIVE (NEGATIVE); URINE BLOOD NEGATIVE (NEGATIVE); URINE COLOR AMBER; URINE GLUCOSE (UA) NEGATIVE (NEGATIVE); URINE KETONE NEGATIVE (NEGATIVE); URINE LEUK ESTERASE NEGATIVE (NEGATIVE); URINE NITRITE NEGATIVE (NEGATIVE); URINE PROTEIN NEGATIVE (NEGATIVE); URINE UROBILINOGEN 4.0 E.U/dl mg/dL (0.2-1.0)
[2017-06-06] MEDS: chlordiazePOXIDE HCL 25 MG CAPSULE PO SCH ×4 (06:02→22:07)
[2017-06-06] MEDS: METHADONE HCL 10 MG TABLET PO SCH (06:02)
[2017-06-06] MEDS: ASPIRIN 81 MG CHEWABLE TABLETS PO SCH (10:13)
[2017-06-06] MEDS: NICOTINE 21 MG/24 HOURS TOPICAL PATCH TD SCH (10:13)
[2017-06-06] MEDS: METOPROLOL TARTRATE 50 MG TABLET (FP) PO SCH ×2 (10:13→22:07)
[2017-06-06] MEDS: PRENATAL VITAMINS W/ FOLIC ACID TABLET (FP) PO SCH (10:13)
--- NOTE | 2017-06-06 15:38 | PN ---
[facility] CIWA - CIWA Score Nausea/Vomitin Muscle Tremors: 4-Moderate,w/Arms Extend Anxiety: 5 Agitation: 5 Paroxysmal Sweats: 3 Orientation: 0-Oriented Tacttile Disturbances: 1-Very Mild Itch/Numbness Auditory Disturbances: 0-None Visual Disturbances: 0-None Headache: 0-None Present CIWA-Ar Total Score: 20 S Progress Note (SOAP) Subjective: Sweating, chills, diarrhea, interrupted sleep Objective: 06/06/17 15:36 Last Vital Signs Temp Pulse Resp BP Pulse Ox 96.9 F L 53 L 16 139/85 06/06/17 13:44 06/06/17 13:44 06/06/17 13:44 06/06/17 13:44 Noted with bradycardia Laboratory Tests 06/05/17 23:10 Urine Color [place] Urine Appearance Clear Urine pH 5.0 Ur Specific Issue 1.025 Urine Protein Negative Urine Glucose (UA) Negative Urine Ketones Negative Urine Blood Negative Urine Nitrite Negative Urine Bilirubin Negative Urine Urobilinogen 4.0 e.u/dl Ur Leukocyte Esterase Negative UA: result noted F/U on admission labs Assessment: 06/06/17 15:37 Withdrawal symptoms Noted with bradycardia Plan: Continue detox Bradycardia: asymptomatic, encouraged to drink more water
[2017-06-06] MEDS: THIAMINE HCL 100 MG TABLET (FP) PO SCH (22:07)
[2017-06-06] MEDS: diphenhydrAMINE HCL 50 MG CAPSULE PO PRN (22:08)
[2017-06-07] MEDS: METHADONE HCL 10 MG TABLET PO SCH (05:33)
[2017-06-07] MEDS: chlordiazePOXIDE HCL 25 MG CAPSULE PO SCH ×2 (05:33→10:11)
[2017-06-07] MEDS: NICOTINE 21 MG/24 HOURS TOPICAL PATCH TD SCH (10:11)
[2017-06-07] MEDS: METOPROLOL TARTRATE 50 MG TABLET (FP) PO SCH ×2 (10:11→22:06)
[2017-06-07] MEDS: PRENATAL VITAMINS W/ FOLIC ACID TABLET (FP) PO SCH (10:11)
[2017-06-07] MEDS: ASPIRIN 81 MG CHEWABLE TABLETS PO SCH (10:11)
--- NOTE | 2017-06-07 10:27 | PN ---
S CIWA - CIWA Score Nausea/Vomitin-No Nausea/No Vomiting Muscle Tremors: 3 Anxiety: 4-Mod. Anxious/Guarded Agitation: 3 Paroxysmal Sweats: 3 Orientation: 0-Oriented Tacttile Disturbances: 0-None Auditory Disturbances: 0-None Visual Disturbances: 0-None Headache: 0-None Present CIWA-Ar Total Score: 13 BHS Progress Note (SOAP) Subjective: Sweating,interrupted sleep,restless,Anxiety. Objective: 06/07/17 10:25 Vital Signs - 8 hr 06/07/17 06/07/17 06/07/17 03:51 06:23 09:35 Temperature 98.1 F 97.3 F L Pulse Rate 50 L 53 L Respiratory 18 16 18 Rate Blood Pressure 156/98 127/82 Laboratory Last Values Urine Color [place]aina 06/05/17 23:10 Urine Appearance Clear 06/05/17 23:10 Urine pH 5.0 (5.0-8.0) 06/05/17 23:10 Ur Specific [place] 1.025 (1.005-1.025) 06/05/17 23:10 Urine Protein Negative (NEGATIVE) 06/05/17 23:10 Urine Glucose (UA) Negative (NEGATIVE) 06/05/17 23:10 Urine Ketones Negative (NEGATIVE) 06/05/17 23:10 Urine Blood Negative (NEGATIVE) 06/05/17 23:10 Urine Nitrite Negative (NEGATIVE) 06/05/17 23:10 Urine Bilirubin Negative (NEGATIVE) 06/05/17 23:10 Urine Urobilinogen 4.0 e.u/dl mg/dL (0.2-1.0) 06/05/17 23:10 Ur Leukocyte Esterase Negative (NEGATIVE) 06/05/17 23:10 u/a noted Assessment: 06/07/17 10:26 Withdrawal sx. Plan: Continue detox
--- NOTE | 2017-06-07 11:31 | EKG ---
Test Reason : Blood Pressure : / mmHG Vent. Rate : 051 BPM Atrial Rate : 051 BPM P-R Int : 156 ms QRS Dur : 114 ms QT Int : 496 ms P-R-T Axes : 034 100 068 degrees QTc Int : 457 ms SINUS BRADYCARDIA NONSPECIFIC INTRAVENTRICULAR CONDUCTION DEFECT POOR R WAVE PROGRESSION ABNORMAL ECG WHEN COMPARED WITH ECG OF 24-MAR-2017 22:40, T WAVE VARIATION Confirmed by FRANCOIS VAZQUEZ MD ([id number]) on 06/07/2017 11:31:01 AM Referred By: Confirmed By:FRANCOIS VAZQUEZ MD
[2017-06-07] MEDS: SPIRONOLACTONE 25 MG TABLET (FP) PO SCH (12:13)
[2017-06-07] MEDS: FUROSEMIDE 20 MG TABLET (FP) PO SCH (13:17)
[2017-06-07 14:34] LABS: MCH 26.9 pg (25.7-33.7); MCHC 31.9 g/dl (32.0-35.9); MEAN CELL VOLUME 84.1 fl (80-96); PLATELET COUNT 164 K/MM3 (134-434); RDW 18.2 % (11.9-15.9); WHITE BLOOD COUNT 7.2 K/mm3 (4.0-10.0)
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
[2017-06-07 14:45] LABS: ALBUMIN 3.3 g/dl (3.4-5.0); ANION GAP 8 (8-16); CO2 31 mmol/L (21-32); GLUCOSE,RANDOM 79 mg/dL (74-106); SGPT/ALT 61 U/L (12-78)
[2017-06-07 14:49] LABS: ALK PHOS 116 U/L (45-117); BILIRUBIN,TOTAL 0.4 mg/dL (0.2-1.0); CALCIUM 8.6 mg/dL (8.5-10.1); CREATININE 0.8 mg/dL (0.7-1.3); SGOT/AST 60 U/L (15-37); TOT PROT 6.4 g/dl (6.4-8.2)
[2017-06-07 15:24] LABS: HIV 1 & 2 AB NEGATIVE; HIV 1 AGp24 NEGATIVE
[2017-06-07] MEDS: chlordiazePOXIDE 5 MG CAPSULE PO SCH ×2 (17:03→22:06)
[2017-06-07] MEDS: THIAMINE HCL 100 MG TABLET (FP) PO SCH (22:05)
[2017-06-07] MEDS: QUEtiapine FUMARATE 200 MG TABLET PO SCH (22:06)
[2017-06-08] MEDS: METHADONE HCL 10 MG TABLET PO SCH (05:31)
[2017-06-08] MEDS: FUROSEMIDE 20 MG TABLET (FP) PO SCH ×2 (05:31→13:57)
[2017-06-08] MEDS: chlordiazePOXIDE 5 MG CAPSULE PO SCH ×2 (05:31→10:03)
[2017-06-08] MEDS: ASPIRIN 81 MG CHEWABLE TABLETS PO SCH (10:03)
[2017-06-08] MEDS: METOPROLOL TARTRATE 50 MG TABLET (FP) PO SCH ×2 (10:04→22:18)
[2017-06-08] MEDS: PRENATAL VITAMINS W/ FOLIC ACID TABLET (FP) PO SCH (10:04)
[2017-06-08] MEDS: SERTRALINE HCL 50 MG TABLET (FP) PO SCH (10:04)
[2017-06-08] MEDS: SPIRONOLACTONE 25 MG TABLET (FP) PO SCH (10:04)
[2017-06-08] MEDS: NICOTINE 21 MG/24 HOURS TOPICAL PATCH TD SCH (10:07)
--- NOTE | 2017-06-08 10:45 | PN ---
BHS Progress Note (SOAP) Subjective: ALERT O X 3. FATIGUE,SWEATS, INTERMITTENT SLEEP. Objective: 06/08/17 10:45 Vital Signs Temperature 97.0 F L 06/08/17 09:31 Pulse Rate 65 06/08/17 09:31 Respiratory Rate 18 06/08/17 09:31 Blood Pressure 114/76 06/08/17 09:31 O2 Sat by Pulse Oximetry (%) Laboratory Last Values WBC 7.2 K/mm3 (4.0-10.0) 06/07/17 11:50 RBC 4.64 M/mm3 (4.00-5.60) 06/07/17 11:50 Hgb 12.5 GM/dL (11.7-16.9) 06/07/17 11:50 Hct 39.0 % (35.4-49) 06/07/17 11:50 MCV 84.1 fl (80-96) 06/07/17 11:50 MCH 26.9 pg (25.7-33.7) 06/07/17 11:50 MCHC 31.9 g/dl (32.0-35.9) L 06/07/17 11:50 RDW 18.2 % (11.9-15.9) H 06/07/17 11:50 Plt Count 164 K/MM3 (134-434) 06/07/17 11:50 MPV 9.0 fl (7.5-11.1) 06/07/17 11:50 Sodium 139 mmol/L (136-145) 06/07/17 11:50 Potassium 4.1 mmol/L (3.5-5.1) 06/07/17 11:50 Chloride 100 mmol/L (98-107) 06/07/17 11:50 Carbon Dioxide 31 mmol/L (21-32) 06/07/17 11:50 Anion Gap 8 (8-16) 06/07/17 11:50 BUN 11 mg/dL (7-18) D 06/07/17 11:50 Creatinine 0.8 mg/dL (0.7-1.3) 06/07/17 11:50 Creat Clearance w eGFR > 60 (>60) 06/07/17 11:50 Random Glucose 79 mg/dL (74-106) 06/07/17 11:50 Calcium 8.6 mg/dL (8.5-10.1) 06/07/17 11:50 Total Bilirubin 0.4 mg/dL (0.2-1.0) 06/07/17 11:50 AST 60 U/L (15-37) H 06/07/17 11:50 ALT 61 U/L (12-78) 06/07/17 11:50 Alkaline Phosphatase 116 U/L (45-117) 06/07/17 11:50 Total Protein 6.4 g/dl (6.4-8.2) 06/07/17 11:50 Albumin 3.3 g/dl (3.4-5.0) L 06/07/17 11:50 Urine Color Taina 06/05/17 23:10 Urine Appearance Clear 06/05/17 23:10 Urine pH 5.0 (5.0-8.0) 06/05/17 23:10 Ur Specific [place] 1.025 (1.005-1.025) 06/05/17 23:10 Urine Protein Negative (NEGATIVE) 06/05/17 23:10 Urine Glucose (UA) Negative (NEGATIVE) 06/05/17 23:10 Urine Ketones Negative (NEGATIVE) 06/05/17 23:10 Urine Blood Negative (NEGATIVE) 06/05/17 23:10 Urine Nitrite Negative (NEGATIVE) 06/05/17 23:10 Urine Bilirubin Negative (NEGATIVE) 06/05/17 23:10 Urine Urobilinogen 4.0 e.u/dl mg/dL (0.2-1.0) 06/05/17 23:10 Ur Leukocyte Esterase Negative (NEGATIVE) 06/05/17 23:10 HIV 1&2 Antibody Screen Negative 06/07/17 11:50 HIV P24 Antigen Negative 06/07/17 11:50 Assessment: 06/08/17 10:45 WITHDRAWAL SX Plan: CONTINUE DETOX
[2017-06-08] MEDS ORDERED: diphenhydrAMINE HCL 25 MG CAPSULE (FP) PO ONE (15:15)
[2017-06-08] MEDS: chlordiazePOXIDE HCL 10 MG CAPSULE PO SCH ×2 (17:23→22:17)
[2017-06-08] MEDS: diphenhydrAMINE HCL 25 MG CAPSULE (FP) PO SCH (22:17)
[2017-06-08] MEDS: THIAMINE HCL 100 MG TABLET (FP) PO SCH (22:17)
[2017-06-08] MEDS: HYDROCORTISONE 1% TOPICAL CREAM 30 GM TUBE TP SCH (22:18)
[2017-06-08] MEDS: QUEtiapine FUMARATE 200 MG TABLET PO SCH (22:18)
[2017-06-09] MEDS: METHADONE HCL 10 MG TABLET PO SCH (07:42)
[2017-06-09] MEDS: chlordiazePOXIDE HCL 10 MG CAPSULE PO SCH ×2 (07:42→11:15)
[2017-06-09] MEDS: FUROSEMIDE 20 MG TABLET (FP) PO SCH (07:42)
[2017-06-09] MEDS: diphenhydrAMINE HCL 25 MG CAPSULE (FP) PO SCH ×3 (07:42→22:07)
--- NOTE | 2017-06-09 09:42 | PN ---
[facility] Progress Note (SOAP) Subjective: ANXIETY,SWEATS,C/O RASH WHICH APPEARS TO BE IMPROVING WITH TREATMENT. Objective: 06/09/17 09:40 Vital Signs Temperature 96.8 F L 06/09/17 09:25 Pulse Rate 55 L 06/09/17 09:25 Respiratory Rate 16 06/09/17 09:25 Blood Pressure 90/66 06/09/17 09:25 O2 Sat by Pulse Oximetry (%) Laboratory Last Values WBC 7.2 K/mm3 (4.0-10.0) 06/07/17 11:50 RBC 4.64 M/mm3 (4.00-5.60) 06/07/17 11:50 Hgb 12.5 GM/dL (11.7-16.9) 06/07/17 11:50 Hct 39.0 % (35.4-49) 06/07/17 11:50 MCV 84.1 fl (80-96) 06/07/17 11:50 MCH 26.9 pg (25.7-33.7) 06/07/17 11:50 MCHC 31.9 g/dl (32.0-35.9) L 06/07/17 11:50 RDW 18.2 % (11.9-15.9) H 06/07/17 11:50 Plt Count 164 K/MM3 (134-434) 06/07/17 11:50 MPV 9.0 fl (7.5-11.1) 06/07/17 11:50 Sodium 139 mmol/L (136-145) 06/07/17 11:50 Potassium 4.1 mmol/L (3.5-5.1) 06/07/17 11:50 Chloride 100 mmol/L (98-107) 06/07/17 11:50 Carbon Dioxide 31 mmol/L (21-32) 06/07/17 11:50 Anion Gap 8 (8-16) 06/07/17 11:50 BUN 11 mg/dL (7-18) D 06/07/17 11:50 Creatinine 0.8 mg/dL (0.7-1.3) 06/07/17 11:50 Creat Clearance w eGFR > 60 (>60) 06/07/17 11:50 Random Glucose 79 mg/dL (74-106) 06/07/17 11:50 Calcium 8.6 mg/dL (8.5-10.1) 06/07/17 11:50 Total Bilirubin 0.4 mg/dL (0.2-1.0) 06/07/17 11:50 AST 60 U/L (15-37) H 06/07/17 11:50 ALT 61 U/L (12-78) 06/07/17 11:50 Alkaline Phosphatase 116 U/L (45-117) 06/07/17 11:50 Total Protein 6.4 g/dl (6.4-8.2) 06/07/17 11:50 Albumin 3.3 g/dl (3.4-5.0) L 06/07/17 11:50 Urine Color Taina 06/05/17 23:10 Urine Appearance Clear 06/05/17 23:10 Urine pH 5.0 (5.0-8.0) 06/05/17 23:10 Ur Specific [place] 1.025 (1.005-1.025) 06/05/17 23:10 Urine Protein Negative (NEGATIVE) 06/05/17 23:10 Urine Glucose (UA) Negative (NEGATIVE) 06/05/17 23:10 Urine Ketones Negative (NEGATIVE) 06/05/17 23:10 Urine Blood Negative (NEGATIVE) 06/05/17 23:10 Urine Nitrite Negative (NEGATIVE) 06/05/17 23:10 Urine Bilirubin Negative (NEGATIVE) 06/05/17 23:10 Urine Urobilinogen 4.0 e.u/dl mg/dL (0.2-1.0) 06/05/17 23:10 Ur Leukocyte Esterase Negative (NEGATIVE) 06/05/17 23:10 RPR Titer Nonreactive (NONREACTIVE) 06/07/17 11:50 HIV 1&2 Antibody Screen Negative 06/07/17 11:50 HIV P24 Antigen Negative 06/07/17 11:50 Assessment: 06/09/17 09:40 WITHDAWAL SX DIMINISHING RED POSTULAR RASH ON FACE AND CHEST. Plan: CONTINUE DETOX/TX
[2017-06-09] MEDS: HYDROCORTISONE 1% TOPICAL CREAM 30 GM TUBE TP SCH ×2 (10:11→22:07)
[2017-06-09] MEDS: SERTRALINE HCL 50 MG TABLET (FP) PO SCH (10:12)
[2017-06-09] MEDS: ASPIRIN 81 MG CHEWABLE TABLETS PO SCH (10:12)
[2017-06-09] MEDS: PRENATAL VITAMINS W/ FOLIC ACID TABLET (FP) PO SCH (10:12)
[2017-06-09] MEDS: NICOTINE 21 MG/24 HOURS TOPICAL PATCH TD SCH (10:14)
[2017-06-09] MEDS: SPIRONOLACTONE 25 MG TABLET (FP) PO SCH (10:58)
[2017-06-09] MEDS: METOPROLOL TARTRATE 50 MG TABLET (FP) PO SCH ×2 (10:58→22:07)
[2017-06-09] MEDS: QUEtiapine FUMARATE 200 MG TABLET PO SCH (22:07)
[2017-06-09] MEDS: THIAMINE HCL 100 MG TABLET (FP) PO SCH (22:07)
[2017-06-10] MEDS: diphenhydrAMINE HCL 25 MG CAPSULE (FP) PO SCH ×2 (06:30→15:09)
[2017-06-10] MEDS: METHADONE HCL 10 MG TABLET PO SCH (06:30)
[2017-06-10] MEDS: HYDROCORTISONE 1% TOPICAL CREAM 30 GM TUBE TP SCH (10:18)
[2017-06-10] MEDS: NICOTINE 21 MG/24 HOURS TOPICAL PATCH TD SCH (10:19)
[2017-06-10] MEDS: SERTRALINE HCL 50 MG TABLET (FP) PO SCH (10:19)
[2017-06-10] MEDS: ASPIRIN 81 MG CHEWABLE TABLETS PO SCH (10:19)
[2017-06-10] MEDS: METOPROLOL TARTRATE 50 MG TABLET (FP) PO SCH (10:19)
[2017-06-10] MEDS: PRENATAL VITAMINS W/ FOLIC ACID TABLET (FP) PO SCH (10:19)
--- NOTE | 2017-06-10 11:07 | DS ---
[facility] Detox Discharge Summary Admission Date: 06/05/17 Discharge Date: 06/10/17 - History Present History: Alcohol Dependence, Cocaine Dependence, MMTP Additional Comments: DETOX COMPLETED. ALERT O X 3. NAD. PT INSTRUCTED TO FOLLOW UP WITH PCP AT [facility] FOR MANAGEMENT OF MEDICAL CONDITIONS. PT STATES HE HAS HIS MEDICATIONS AT HOME AND NEEDED NO RX. Pertinent Past History: S/P TRICUSPID VALVE REPLACEMENT HEP C PTSD BIPOLAR DISORDER - Physical Exam Results Vital Signs: Vital Signs Temperature 97.6 F 06/10/17 10:05 Pulse Rate 59 L 06/10/17 10:05 Respiratory Rate 18 06/10/17 10:05 Blood Pressure 95/68 06/10/17 10:05 O2 Sat by Pulse Oximetry (%) Pertinent Admission Physical Exam Findings: WITHDRAWAL SX Laboratory Last Values WBC 7.2 K/mm3 (4.0-10.0) 06/07/17 11:50 RBC 4.64 M/mm3 (4.00-5.60) 06/07/17 11:50 Hgb 12.5 GM/dL (11.7-16.9) 06/07/17 11:50 Hct 39.0 % (35.4-49) 06/07/17 11:50 MCV 84.1 fl (80-96) 06/07/17 11:50 MCH 26.9 pg (25.7-33.7) 06/07/17 11:50 MCHC 31.9 g/dl (32.0-35.9) L 06/07/17 11:50 RDW 18.2 % (11.9-15.9) H 06/07/17 11:50 Plt Count 164 K/MM3 (134-434) 06/07/17 11:50 MPV 9.0 fl (7.5-11.1) 06/07/17 11:50 Sodium 139 mmol/L (136-145) 06/07/17 11:50 Potassium 4.1 mmol/L (3.5-5.1) 06/07/17 11:50 Chloride 100 mmol/L (98-107) 06/07/17 11:50 Carbon Dioxide 31 mmol/L (21-32) 06/07/17 11:50 Anion Gap 8 (8-16) 06/07/17 11:50 BUN 11 mg/dL (7-18) D 06/07/17 11:50 Creatinine 0.8 mg/dL (0.7-1.3) 06/07/17 11:50 Creat Clearance w eGFR > 60 (>60) 06/07/17 11:50 Random Glucose 79 mg/dL (74-106) 06/07/17 11:50 Calcium 8.6 mg/dL (8.5-10.1) 06/07/17 11:50 Total Bilirubin 0.4 mg/dL (0.2-1.0) 06/07/17 11:50 AST 60 U/L (15-37) H 06/07/17 11:50 ALT 61 U/L (12-78) 06/07/17 11:50 Alkaline Phosphatase 116 U/L (45-117) 06/07/17 11:50 Total Protein 6.4 g/dl (6.4-8.2) 06/07/17 11:50 Albumin 3.3 g/dl (3.4-5.0) L 06/07/17 11:50 Urine Color [place]ain[place] 06/05/17 23:10 Urine Appearance Clear 06/05/17 23:10 Urine pH 5.0 (5.0-8.0) 06/05/17 23:10 Ur Specific [place] 1.025 (1.005-1.025) 06/05/17 23:10 Urine Protein Negative (NEGATIVE) 06/05/17 23:10 Urine Glucose (UA) Negative (NEGATIVE) 06/05/17 23:10 Urine Ketones Negative (NEGATIVE) 06/05/17 23:10 Urine Blood Negative (NEGATIVE) 06/05/17 23:10 Urine Nitrite Negative (NEGATIVE) 06/05/17 23:10 Urine Bilirubin Negative (NEGATIVE) 06/05/17 23:10 Urine Urobilinogen 4.0 e.u/dl mg/dL (0.2-1.0) 06/05/17 23:10 Ur Leukocyte Esterase Negative (NEGATIVE) 06/05/17 23:10 RPR Titer Nonreactive (NONREACTIVE) 06/07/17 11:50 HIV 1&2 Antibody Screen Negative 06/07/17 11:50 HIV P24 Antigen Negative 06/07/17 11:50 - Treatment Hospital Course: Detox Protocol Followed, Detoxed Safely, Responded well, Discharged Condition Good, Rehab Referral Accepted Patient has Accepted a Rehab Referral to: [facility] - Medication Discharge Medications: Ambulatory Orders Quetiapine Fumarate [Seroquel -] 200 mg PO HS 03/24/17 Aspirin [ASA -] 81 mg PO DAILY #30 tab 04/13/17 Metoprolol Tartrate [Lopressor] 100 mg PO DAILY #30 tab 04/13/17 Sertraline HCl [Zoloft -] 50 mg PO DAILY #30 tab 04/13/17 Methadone [Dolophine -] 30 mg PO DAILY 06/05/17 Quetiapine Fumarate [Seroquel -] 200 mg PO HS #30 tab 06/07/17 Sertraline HCl [Zoloft -] 50 mg PO DAILY #30 tablet 06/07/17 - Diagnosis (1) Nicotine dependence Current Visit: Yes Status: Acute Qualifiers: Nicotine product type: cigarettes Substance use status: uncomplicated Qualified Code(s): F17.210 - Nicotine dependence, cigarettes, uncomplicated (2) Uncomplicated alcohol dependence Current Visit: Yes Status: Acute (3) Cocaine dependence, uncomplicated Current Visit: Yes Status: Acute (4) Hepatitis C Current Visit: Yes Status: Chronic Qualifiers: Viral hepatitis chronicity: chronic Hepatic coma status: without hepatic coma Qualified Code(s): B18.2 - Chronic viral hepatitis C (5) History of bacterial endocarditis Current Visit: Yes Status: Resolved (6) Methadone maintenance therapy patient Current Visit: Yes Status: Chronic (7) PTSD (post-traumatic stress disorder) Current Visit: Yes Status: Chronic (8) Tricuspid valve replaced Current Visit: Yes Status: Chronic - AMA Did Patient Leave Against Medical Advice: No
[2017-06-10 17:14] VITALS: BP 117/79; PULSE 57; TEMP 97.5
== END 2017-06-10 19:45 | disposition home or self-care (01) | DRG 773 ==
LOC: YASAS 10:34 → Y3N 15:11
PROVIDERS: ADMIT Internal Medicine; ATTEND Internal Medicine
PROC: HZ2ZZZZ Detoxification Services for Substance Abuse Treatment (ICD-10-PCS; principal; 2017-06-10)
DX: F11.20 Opioid dependence, uncomplicated (principal); F10.20 Alcohol dependence, uncomplicated; F14.20 Cocaine dependence, uncomplicated; F17.210 Nicotine dependence, cigarettes, uncomplicated; F43.10 Post-traumatic stress disorder, unspecified; F31.9 Bipolar disorder, unspecified; G47.00 Insomnia, unspecified; I10 Essential (primary) hypertension; Z95.2 Presence of prosthetic heart valve; Z91.5 Personal history of self-harm
CPT/HCPCS: 36415; 80053; 81003; 85027; 86593; 87389; 93005; 93010